=== PATIENT | female | born 1980 | race Caucasian/White ===

== ENCOUNTER 2017-05-04 18:23 | Emergency (ER) | payer OTHER ==
[2017-05-04 20:23] VITALS: BP 127/73
[2017-05-04] MEDS ORDERED: Sulfamethox/Trimethoprim DS 800/160* TAB PO ONE (21:38)
--- NOTE | 2017-05-04 21:42 | ED ---
Skin Complaint - HPI Summary HPI Summary: 37 yr old with redness and some swelling to the right upper lip area with pain just today. Denies fever or chills. Denies rash otherwise. She has not had fever. pain is moderate. She denies dental pain. - History of Current Complaint Chief Complaint: UCSkin Time Seen by Provider: 05/04/17 21:15 Stated Complaint: SWOLLEN LIP AND NOSE Hx Last Menstrual Period: 05/02/17 - Allergy/Home Medications Allergies/Adverse Reactions: Allergies Allergy/AdvReac Type Severity Reaction Status Date / Time apples Allergy Rash Uncoded 05/04/17 20:24 Home Medications: Home Medications Bupropion XL* [Wellbutrin XL *] 300 mg PO DAILY 05/04/17 [History Confirmed ] Citalopram TAB* [CeleXA TAB*] 20 mg PO DAILY 05/04/17 [History Confirmed ] Furosemide TAB* [Lasix TAB*] 40 mg PO DAILY 05/04/17 [History Confirmed 05/04/17 ] Gabapentin CAP(*) [Neurontin 300 CAP(*)] 300 mg PO BID 05/04/17 [History Confirmed 05/04/17] Ibuprofen [Ibuprofen 200] 1,200 mg PO ONCE PRN 05/04/17 [History Confirmed 05/04] Naltrexone INJ [Vivitrol INJ] 380 mg IM MONTHLY 05/04/17 [History Confirmed ] PMH/Surg Hx/FS Hx/Imm Hx Endocrine/Hematology History: Denies: Hx Diabetes Respiratory History: Denies: Hx Asthma - Surgical History Surgery Procedure, Year, and Place: tonsillectomy 1998. . ESSURE INSERTION Infectious Disease History: No Infectious Disease History: Denies: Traveled Outside the [place] in Last 30 Days - Family History Known Family History: Positive: None - Social History Occupation: Employed Full-time Alcohol Use: None Alcohol Amount: quit 07/2016 Substance Use Type: Reports: None Smoking Status (MU): Former Smoker Review of Systems Constitutional: Negative Positive: Other - pain right upper lip with some redness. All Other Systems Reviewed And Are Negative: Yes Physical Exam Triage Information Reviewed: Yes Vital Signs On Initial Exam: Initial Vitals Temp Pulse BP Pulse Ox 98.6 F 78 127/73 100 05/04/17 20:14 05/04/17 20:14 05/04/17 20:14 05/04/17 20:14 Vital Signs Reviewed: Yes Appearance: Positive: Well-Appearing, No Pain Distress Skin: Positive: Other - redness to the right upper lip with very minimal swelling. She has no dental tenderness and no periapical abcess. There is no swelling to the nose. Eyes: Positive: EOMI ENT: Positive: Pharynx normal, TMs normal Neck: Positive: Nontender, No Lymphadenopathy Respiratory/Lung Sounds: Positive: Clear to Auscultation, Breath Sounds Present Cardiovascular: Positive: RRR. Negative: Murmur Musculoskeletal: Positive: Strength/ROM Intact Neurological: Positive: Sensory/Motor Intact, Alert, Oriented to Person Place, Time, CN Intact II-III, Normal Gait, Speech Normal - Filion Coma Scale Best Eye Response: 4 - Spontaneous Best Motor Response: 6 - Obeys Commands Best Verbal Response: 5 - Oriented Diagnostics - Vital Signs Vital Signs Temp Pulse BP Pulse Ox 05/04/17 20:14 98.6 F 78 127/73 100 - Laboratory Lab Statement: Any lab studies that have been ordered have been reviewed, and results considered in the medical decision making process. Course/Dx - Diagnoses Provider Diagnoses: Cellulitis of skin of lip Discharge - Discharge Plan Condition: Good Disposition: HOME Prescriptions: Sulfamethox/Trimethoprim DS* [Bactrim DS 800/160 TAB*] 1 tab PO BID #20 tab Patient Education Materials: Cellulitis (ED) Referrals: Vidhya Augustine MD [Primary Care Provider] - 2 Days
== END 2017-05-04 21:51 | disposition home or self-care (01) ==
LOC: UCCORT 18:23
DX: K13.0 Diseases of lips (principal)
CPT/HCPCS: 99212; A9270-GY; G0463

== ENCOUNTER 2017-09-20 13:28 | Emergency (ER) | payer OTHER ==
--- NOTE | 2017-09-20 13:48 | UC ---
Ear Complaint HPI - HPI Summary HPI Summary: 37 yo WF presents with 10/10 right ear pain with bleeding. She tells me that she went swimming at a hotel pool 4 days ago. The next day noticed yellow/green drainage and mild pain out of her right ear. She packed this with a cotton ball and left it alone. Did this again yesterday. This morning she developed worsening pain, little to no hearing out of the ear, ringing in the ear, and bleeding from the ear. Denies fever, chills, headache, dizziness. - History of Current Complaint Stated Complaint: RIGHT EAR COMPLAINT Time Seen by Provider: 09/20/17 13:47 Hx Obtained From: Patient Hx Last Menstrual Period: 05/02/17 Onset/Duration: Gradual Onset Severity Initially: Moderate Severity Currently: Severe Pain Intensity: 10 Pain Scale Used: 0-10 Numeric - Allergies/Home Medications Allergies/Adverse Reactions: Allergies Allergy/AdvReac Type Severity Reaction Status Date / Time apples Allergy Rash Uncoded 09/20/17 13:47 Home Medications: Home Medications Acetaminophen TAB* [Tylenol TAB*] 650 mg PO Q4H PRN 09/20/17 [History Confirmed 09/20/17] Cholecalciferol TAB* [Vitamin D TAB*] 1,000 unit PO DAILY 09/20/17 [History Confirmed 09/20/17] PMH/Surg Hx/FS Hx/Imm Hx - Additional Past Medical History Additional PMH: Headaches Anxiety Depression - Surgical History Surgical History: Yes Surgery Procedure, Year, and Place: tonsillectomy 1998. . ESSURE INSERTION - Family History Known Family History: Positive: None - Social History Occupation: Employed Full-time Lives: With Family Alcohol Use: None Alcohol Amount: quit 07/2016 Substance Use Type: None Smoking Status (MU): Former Smoker When Did the Patient Quit Smoking/Using Tobacco: 1 MO AGO Review of Systems Constitutional: Negative Skin: Negative Eyes: Negative ENT: Ear Ache Respiratory: Negative Cardiovascular: Negative Gastrointestinal: Negative Neurovascular: Negative Neurological: Negative Psychological: Negative All Other Systems Reviewed And Are Negative: Yes Physical Exam - Summary Physical Exam Summary: GENERAL: NAD. WDWN. No pain distress. SKIN: No rashes, sores, lesions, or open wounds. HEENT: Head: AT/NC Eyes: EOM intact. Conjunctiva clear without inflammation or discharge. Ears: Right ear: No hearing. Moderate blood on external ear and in ear canal. Severe TTP. Moderate canal edema. TM not visualized. Nose: Nasal mucosa pink and moist. NTTP maxillary and frontal sinus. Throat: Posterior oropharynx without exudates, erythema, or tonsillar enlargement. Uvula midline. NECK: Supple. Nontender. No lymphadenopathy. CHEST: No accessory muscle use. Breathing comfortably and in no distress. CV: RRR. Without m/r/g. NEURO: Alert. CN II-XII grossly intact. PSYCH: Age appropriate behavior. Triage Information Reviewed: Yes Ear Complaint Course/Dx - Course Course Of Treatment: Spoke with Dr. Dixon of ENT - treat like otitis externa and f/u in 1 week. Will rx for ofloxacin. - Differential Dx/Diagnosis Provider Diagnoses: Otitis externa right ear Discharge - Sign-Out/Discharge Documenting (check all that apply): Discharge/Admit/Transfer - Discharge Plan Condition: Stable Disposition: HOME Prescriptions: Ofloxacin 0.3% OTIC.AMAURI* [Floxin 0.3% OTIC.AMAURI*] 5 drop RIGHT EAR BID #1 btl Patient Education Materials: Otitis Externa (ED) Referrals: BENSON Dueñas [Primary Care Provider] - Additional Instructions: If you develop a fever, shortness of breath, chest pain, new or worsening symptoms - please call your PCP or go to the ED. 1) Please follow up with Dr. Dixon in 1 week for follow up - Billing Disposition and Condition Condition: STABLE Disposition: HOME
[2017-09-20 13:52] VITALS: BP 116/58
== END 2017-09-20 14:28 | disposition home or self-care (01) ==
LOC: UCCORT 13:28
DX: H60.91 Unspecified otitis externa, right ear (principal); Z87.891 Personal history of nicotine dependence
CPT/HCPCS: 99212; G0463

== ENCOUNTER 2018-11-03 19:08 | Emergency (ER) | payer OTHER ==
[2018-11-03 19:39] VITALS: BP 111/69
--- NOTE | 2018-11-03 19:52 | UC ---
Hand/Wrist HPI - HPI Summary HPI Summary: 38-year-old female who was laying in bed and when she got up she did not realize she her blankets were wrapped around her feet and she fell injuring her left middle finger yesterday. - History Of Current Complaint Chief Complaint: UCGeneralIllness Stated Complaint: LT MIDDLE FINGER INJ Time Seen by Provider: 11/03/18 19:40 Hx Obtained From: Patient Hx Last Menstrual Period: 10/16/18 ?: No Onset/Duration: Sudden Onset Severity Initially: Mild Severity Currently: Moderate Pain Intensity: 8 Character Of Pain: Dull, Aching Aggravating Factor(s): Movement, Flexion Alleviating Factor(s): Nothing Associated Signs And Symptoms: Positive: Swelling, Bruising - Allergies/Home Medications Allergies/Adverse Reactions: Allergies Allergy/AdvReac Type Severity Reaction Status Date / Time apples Allergy Rash Uncoded 11/03/18 19:39 Home Medications: Home Medications Acetaminophen [Tylenol Extra Strength] 2 tab PO Q6H 11/03/18 [History Confirmed 11/03/18] Hydrochlorothiazide TAB* [Hydrodiuril TAB*] 1 tab PO DAILY 11/03/18 [History Confirmed 11/03/18] PMH/Surg Hx/FS Hx/Imm Hx Previously Healthy: Yes Psychological History: Depression - Surgical History Surgical History: Yes Surgery Procedure, Year, and Place: tonsillectomy 1998. . ESSURE INSERTION - Family History Known Family History: Positive: None - Social History Alcohol Use: None Alcohol Amount: quit 07/2016 Substance Use Type: None Smoking Status (MU): Former Smoker When Did the Patient Quit Smoking/Using Tobacco: 2017 Review of Systems All Other Systems Reviewed And Are Negative: Yes Motor: Positive: Decreased ROM - Patient states she is unable to flex her left middle finger. Neurovascular: Positive: Negative Musculoskeletal: Positive: Decreased ROM - Pain and mild bruising at the midportion of the left middle finger. Neurological: Positive: Negative Psychological: Positive: Negative Is Patient Immunocompromised?: No Physical Exam Triage Information Reviewed: Yes Appearance: Well-Appearing, No Pain Distress, Well-Nourished Vital Signs: Initial Vital Signs Temp 97.4 F 11/03/18 19:30 Pulse 84 11/03/18 19:30 Resp 18 11/03/18 19:30 BP 111/69 11/03/18 19:30 Pulse Ox 98 11/03/18 19:30 Vital Signs Reviewed: Yes Musculoskeletal: Positive: Other: - Good peripheral pulses neuro sensation capillary refill, good wrist and hand stability and nontender. Her entire left middle finger is tender on palpation with some mild bruising and swelling. She states she is unable to flex her finger however she can extend it against resistance. Skin: Positive: Other - See notes above. Hand/Wrist Course/Dx - Course Course Of Treatment: Left middle finger x-ray: Negative as read by myself and Dr. hayes. A ghassan tape was applied to the index finger and the middle finger. The patient was able to mildly flex her middle finger following the negative x-ray. - Differential Dx/Diagnosis Provider Diagnosis: Finger sprain Discharge - Sign-Out/Discharge Documenting (check all that apply): Patient Departure All imaging exams completed and their final reports reviewed: No - Discharge Plan Condition: Fair Disposition: HOME Patient Education Materials: Finger Sprain (ED) Forms: *Work Release Referrals: Scarlet Salazar MD [Primary Care Provider] - Arcadio Cross MD [Medical Doctor] - Additional Instructions: Ice and elevate intermittently over the next 24-48 hours. Tylenol for pain. Definite follow-up with the orthopedist if you have any further concerns. - Billing Disposition and Condition Condition: FAIR Disposition: Home - Attestation Statements Provider Attestation: Per institutional requirements, I have reviewed the chart, however, I was not consulted specifically or made aware of this patient by the midlevel provider. I did not personally evaluate, interact with , or disposition this patient.
--- NOTE | 2018-11-04 09:48 | UC ---
- Progress Note Progress Note: Patient Name: EVON RAY Medical Record#: [id number] Ordering Physician: Paola Luna [employer] Acct.#: [id number] : 1980 Age: 38 Sex: F Location: [facility] Exam Date: 11/03/181947 ADM Status: [facility] Order Information: FINGER LEFT MIDDLE Accession Number: [id number] CPT: 67622 Indication: LEFT third finger pain post fall. Comparison: No relevant prior exams available on the [facility] PACS for comparison. Technique: 3 views LEFT third finger. REPORT AND IMPRESSION: #. Negative for fracture or articular malalignment. Fusiform soft tissue swelling most prominent at level of the proximal interphalangeal joint. R0 Preliminary Imaging Read R0 <Electronically signed by Marck Dubose MD in [place]> 11/04/18850 Dictated By: Marck Dubose MD Dictated Date/Time: 11/04/18850 Transcribed Date/Time: 11/04/18849 Copy to: CC:Scarlet Salazar MD; Navin Santamaria MD; Paola Luna NP Imaging - [facility] [address] [place] [address] ph ([phone]) ph ([phone]) ph ([phone]) This report is only to be considered final once signed by the Provider(s) as displayed in the "<Electronically Signed by >" field (s). Absence of a signature indicates the report is in a draft status and still needs to be finalized. In the event this document was created by someone other than the signing Provider, the individual initiating the document will be listed in the "Entered by:" or "Dictated by:" [place]. 1 of 1 Course/Dx - Diagnoses Provider Diagnoses: Finger sprain Discharge - Sign-Out/Discharge Documenting (check all that apply): Post-Discharge Follow Up All imaging exams completed and their final reports reviewed: Yes - Discharge Plan Condition: Fair Disposition: HOME Patient Education Materials: Finger Sprain (ED) Forms: *Work Release Referrals: Scarlet Salazar MD [Primary Care Provider] - Arcadio Cross MD [Medical Doctor] - Additional Instructions: Ice and elevate intermittently over the next 24-48 hours. Tylenol for pain. Definite follow-up with the orthopedist if you have any further concerns. - Billing Disposition and Condition Condition: FAIR Disposition: Home
== END 2018-11-03 21:31 | disposition home or self-care (01) ==
LOC: UCCORT 19:08
DX: S63.613A Unspecified sprain of left middle finger, initial encounter (principal); W01.0XXA Fall on same level from slipping, tripping and stumbling without subsequent striking against object, initial encounter; Y92.9 Unspecified place or not applicable; Z87.891 Personal history of nicotine dependence
CPT/HCPCS: 73140; 99211; G0463